=== PATIENT | male | born 1950 | race Caucasian/White ===

== ENCOUNTER 2019-06-09 09:47 | Day surgery (SDC) | payer MEDICARE, BC ==
[~2019-06-09] VITALS: Ht 180.3 cm; Wt 97.5 kg
[~2019-06-09 09:47] MED LIST: ALBU3IS; ALBU90OI61; ALBU90OI61 INH; AMOCLA875 PO; Calcium 600+D1 EAC2; Daily Multiple1 EACH PO; Flonase 0.05% N16 GM; GUAI600T33 PO; HYDROCODONE SYRUP; Ipratr-Albuterol3 ML IH; LOSARTAN-HCTZ1 EAC2; Lovastatin20 MG; OMEP20ER PO; PANT20; Prednisone20 MG PO; Pulmicort Fle180 MCG INH; TAMS.4ER; Ventolin Soln3 ML INH; Ventolin5 MG/1 ML
== END 2019-06-09 12:20 | disposition home or self-care (01) ==
LOC: ORSCSDS 09:47
PROVIDERS: Internal Medicine Gastroenterology
PROC: 0DBN8ZX Excision of Sigmoid Colon, Via Natural or Artificial Opening Endoscopic, Diagnostic (ICD-10-PCS; principal; 2019-06-09 11:00)
PROC: 0DBL8ZX Excision of Transverse Colon, Via Natural or Artificial Opening Endoscopic, Diagnostic (ICD-10-PCS; principal; 2019-06-09 11:00)
DX: R19.4 Change in bowel habit (principal); R10.32 Left lower quadrant pain; D12.3 Benign neoplasm of transverse colon; K63.5 Polyp of colon; K57.30 Diverticulosis of large intestine without perforation or abscess without bleeding; K64.8 Other hemorrhoids; Z86.010 Personal history of colon polyps; I10 Essential (primary) hypertension; K21.9 Gastro-esophageal reflux disease without esophagitis; Z87.891 Personal history of nicotine dependence; J45.909 Unspecified asthma, uncomplicated; Z79.899 Other long term (current) drug therapy
CPT/HCPCS: 88305; J2704; J7120

== ENCOUNTER 2021-01-22 07:36 | Day surgery (SDC) | payer MEDICARE, BC ==
[~2021-01-22] VITALS: Ht 180.3 cm; Wt 99.4 kg
[~2021-01-22 07:36] MED LIST changes: -PANT20; +PANT20 PO
[2021-01-22] MEDS ORDERED: FLUT.05NI (08:03)
== END 2021-01-22 09:22 | disposition home or self-care (01) ==
LOC: ORSCSDS 07:36
PROVIDERS: Internal Medicine Gastroenterology
PROC: 0DB58ZX Excision of Esophagus, Via Natural or Artificial Opening Endoscopic, Diagnostic (ICD-10-PCS; principal; 2021-01-22 08:45)
DX: K22.70 Barrett's esophagus without dysplasia (principal); K44.9 Diaphragmatic hernia without obstruction or gangrene; Z87.891 Personal history of nicotine dependence
CPT/HCPCS: 88305; J2704; J7120

== ENCOUNTER 2022-01-01 07:10 | Day surgery (SDC) | payer MEDICARE, BC ==
[~2022-01-01] VITALS: Ht 180.3 cm; Wt 95.2 kg
[~2022-01-01 07:10] MED LIST changes: +ALBU90OI INH; +FLUT.05NI; +MAGNESIUM250 MG PO; +PREVAGEN; +Vitamin B-Comp1 EAC7 PO; +[UNRECOGNIZED DRUG - OTHER]
== END 2022-01-01 09:24 | disposition home or self-care (01) ==
LOC: ORSCSDS 07:10
PROVIDERS: Internal Medicine Gastroenterology
PROC: 0DBK8ZX Excision of Ascending Colon, Via Natural or Artificial Opening Endoscopic, Diagnostic (ICD-10-PCS; principal; 2022-01-01 08:15)
PROC: 0DBN8ZX Excision of Sigmoid Colon, Via Natural or Artificial Opening Endoscopic, Diagnostic (ICD-10-PCS; principal; 2022-01-01 08:15)
DX: R19.4 Change in bowel habit (principal); Z86.010 Personal history of colon polyps; D12.5 Benign neoplasm of sigmoid colon; D12.2 Benign neoplasm of ascending colon; K57.30 Diverticulosis of large intestine without perforation or abscess without bleeding; K64.8 Other hemorrhoids; J45.909 Unspecified asthma, uncomplicated; E78.5 Hyperlipidemia, unspecified; Z79.899 Other long term (current) drug therapy; Z87.891 Personal history of nicotine dependence
CPT/HCPCS: 88305; J2704; J7120

== ENCOUNTER → 2022-04-01 | Outpatient (CLI) | payer MEDICARE, BC | END | disposition home or self-care (01) | LOC: LAB 12:00 → LAB SHORT 12:00 | DX: L02.222 Furuncle of back [any part, except buttock and flank] (principal); A49.9 Bacterial infection, unspecified; L81.4 Other melanin hyperpigmentation; L82.1 Other seborrheic keratosis; D22.39 Melanocytic nevi of other parts of face; D22.61 Melanocytic nevi of right upper limb, including shoulder; D22.62 Melanocytic nevi of left upper limb, including shoulder; D22.5 Melanocytic nevi of trunk; M72.0 Palmar fascial fibromatosis [Dupuytren]; L21.8 Other seborrheic dermatitis | CPT/HCPCS: 87070; 87205 ==

== ENCOUNTER 2024-05-13 12:26 | Day surgery (SDC) | payer MEDICARE, BC ==
[~2024-05-13] VITALS: Ht 182.9 cm; Wt 90.3 kg
[~2024-05-13 12:26] MED LIST changes: +Lactated Ringer's 1,000 ML IV ONE; +propofoL 50 ML IV ONE
[2024-05-13] MEDS ORDERED: Lactated Ringer's 1,000 ML IV ONE (13:03)
[2024-05-13] MEDS ORDERED: Glycopyrrolate 0.2 MG/ML 1MLVIAL ONE (14:21)
[2024-05-13 15:04] VITALS: BP 115/68
== END 2024-05-13 14:50 | disposition home or self-care (01) ==
LOC: ORSCSDS 12:26
PROVIDERS: Internal Medicine Gastroenterology
PROC: 0DBK8ZX Excision of Ascending Colon, Via Natural or Artificial Opening Endoscopic, Diagnostic (ICD-10-PCS; principal; 2024-05-13 13:45)
PROC: 0DB58ZX Excision of Esophagus, Via Natural or Artificial Opening Endoscopic, Diagnostic (ICD-10-PCS; principal; 2024-05-13 13:45)
PROC: 0DBN8ZX Excision of Sigmoid Colon, Via Natural or Artificial Opening Endoscopic, Diagnostic (ICD-10-PCS; principal; 2024-05-13 13:45)
DX: K22.70 Barrett's esophagus without dysplasia (principal); K21.9 Gastro-esophageal reflux disease without esophagitis; Z12.11 Encounter for screening for malignant neoplasm of colon; D12.5 Benign neoplasm of sigmoid colon; Z86.010 Personal history of colon polyps; J45.909 Unspecified asthma, uncomplicated; Z79.899 Other long term (current) drug therapy
CPT/HCPCS: 88305; J2704; J7120